=== PATIENT | female | born 1950 | race Caucasian/White ===

== ENCOUNTER → 2016-12-28 | Outpatient (CLI) | payer BC ==
[~2016-12-28] MED LIST: CITA10SO5 PO; ELDERBERRY PO; FISH1CAP29 PO
== END ==
LOC: LAB 17:04
PROVIDERS: ATTEND Surgery
DX: R00.8 Other abnormalities of heart beat (principal)
CPT/HCPCS: 93005

== ENCOUNTER 2017-04-27 05:35 | Inpatient (IN) ==
[2017-04-27] MEDS ORDERED: SALINE FLUSH 10ml SYRINGE IVF PRN (06:19)
--- NOTE | 2017-04-27 06:20 | Emergency Department Report ---
Abdominal Pain HPI - General Chief Complaint: Abdominal Pain Stated Complaint: Side pain,nausea,chills Time Seen by Provider: 04/27/17 06:19 Source: patient Mode of arrival: ambulatory Limitations: no limitations - History of Present Illness HPI narrative: 66-year-old female presents to the emergency department with a chief complaint of nausea and left sided abdominal discomfort. Patient noted onset of symptoms on Tuesday. Symptoms have been persistent intermittently in nature since onset. She denies any chest pain or shortness of breath. Patient does also note belching with nausea. She states that the pain has resolved but the nausea remains. He describes the pain as dull. Pain is mild. No radiation. She did not note any exacerbating or remitting symptoms. She denies any trauma , travel, poorly prepared food or recent antibiotic use. She has no other complaints or associated symptoms. She was eating supper when the symptoms began. Symptoms have been persisted in nature since onset. - Related Data Home Medications Medication Instructions Recorded Confirmed ELDERBERRY 1 tsp PO DAILY #0 08/16/11 04/27/17 Aspirin [Aspirin EC] 81 mg PO DAILY 01/24/17 04/27/17 Metoprolol Tartrate [Lopressor] 25 mg PO BIDWM 01/24/17 04/27/17 Allergies Allergy/AdvReac Type Severity Reaction Status Date / Time No Known Drug Allergies Allergy Unknown Verified 04/27/17 05:48 Review of Systems Constitutional: Denies: fever, weakness Eyes: Denies: eye pain, vision change ENT: Denies: ear pain, throat pain Cardiovascular: Denies: chest pain, palpitations Respiratory: Denies: cough, dyspnea Gastrointestinal: Reports: abdominal pain (resolved. ), nausea. Denies: vomiting, diarrhea Genitourinary: Denies: urgency, dysuria Musculoskeletal: Denies: back pain, arthralgia Integumentary: Denies: erythema, rash Neurological: Denies: headache, numbness Psychiatric: Denies: anxiety, depression Endocrine: Denies: fatigue, heat or cold intolerance Hematological/Lymphatic: Denies: easy bleeding, easy bruising Allergic/Immunologic: Denies: facial swelling, urticaria PFSH Patient Stated Medical History Cardiac Arrhythmia Yes: INTERMITTENT A FIB Hypertension Yes Other Cardiology Yes: Hx of Intermittent Atrial Fib Bronchitis Yes: MANY YEARS AGO Sleep Apnea Yes Shingles Yes: JANUARY 2016 Post Menopausal Yes Surgical History: Colonoscopy Family History: Reviewed and Noncontributory. - Social History Smoking status: Never smoker Substance use type: does not use Alcohol intake frequency: does not drink Physical Exam - Limitations Limitations: no limitations - General General appearance: alert, in no apparent distress - Normal Exams: Head:: Normocephalic without trauma Eyes:: Pupils are PERRLA w/ EOMI, No scleral icterus, irritation, or foreign bodies noted ENMT:: No facial trauma, nasal exudates, pharyngeal erythema, or exudates are noted Dental: No fractured, loose, or missing teeth noted Neck:: Full range of motion, without adenopathy, JVD, bruits or thyromegaly Chest/Respirations:: Clear all pierre, with good airflow, and symmetry bilaterally Cardiovascular:: Regular rate and rhythm, without murmur or gallop, Pulses 2+ all extremities, capillary refill, <2 seconds all extremities Abdomen:: Bowel sounds positive, soft, non-tender, non-distended, no hepatosplenomegaly, masses or bruits noted Lymphatic:: No lymphadenopathy, or lymphedema noted Musculoskeletal:: No tenderness, or deformity noted, good range of motion, all extremities Integumentary:: No rashes, hives, or bruising noted, hair and nails, without abnormality Neurological:: Patient is alert, and oriented, cranial nerves, motor/sensory/ cerebellar, exams w/o gross deficits, to observation Psychiatric:: Patient exhibits, appropriate attention, emotion and affect Course Vital Signs Temperature 98.3 F 04/27/17 05:38 Pulse Rate 102 H 04/27/17 05:38 Respiratory Rate 12 04/27/17 05:38 Blood Pressure 146/96 H 04/27/17 05:38 Pulse Oximetry 98 04/27/17 05:38 Temperature 98.3 F 04/27/17 05:38 Pulse Rate 102 H 04/27/17 05:38 Respiratory Rate 12 04/27/17 05:38 Blood Pressure 146/96 H 04/27/17 05:38 Pulse Oximetry 98 04/27/17 05:38 Abdominal Pain - MDM Narrative Medical decision making narrative: Labs / imaging were discussed in detail with the patient and questions are answered. Due to the patient's continued complaints of nausea and belching EKG/ troponin is ordered. EKG shows potential ischemic changes in V3/V4. Troponin returns positive. Repeat EKG is ordered. Dr. Umanzor is contacted as the patient belongs to Dr. Umanzor and his cardiology service. Dr. Umanzor will take the patient to the [facility] for further evaluation and treatment. Patient was given 324 mg of aspirin by mouth times one. Patient declines offered analgesic pain medication in the emergency department. Heparin drip will be initiated by Dr. Umanzor's team. Patient will be taken to CCU from the [facility]. Patient is in agreement with the current plan of management. No further orders from accepting physician who is in agreement with the current plan of management. She was admitted to the hospital in improved condition. Dr. Umanzor accepted the patient to his service. Dr. Umanzor came to the emergency department and evaluated the patient in the ER. - Differential Diagnosis Differential diagnosis: Likely: abdominal pain, calculus of kidney, pancreatitis , small bowel obstruction - Lab Data Result diagrams: 04/27/17 06:32 04/27/17 06:32 - Radiology Data CXR - No acute processes. - EKG Data EKG #1 EKG results narrative: EKG #1 - atrial fibrillation. 97 bpm. No STEMI. Potential ischemic changes in V3/4. EKG Reviewed by Cardiology at bedside. EKG #2 - atrial flutter. 93 bpm. No STEMI. Ischemic changes noted in V3/V4. EKG reviewed by Cardiology at bedside. Critical Care Time Critical Care Time: Yes Total Critical Care Time: 60 Attestation: 60 minutes of critical care time was assessed to the patient for the elevated troponin level. Patient required repeated assessment at the bedside, complex medical decision-making, and had potential for decompensation. Critical care time was spent treating the patient, documenting the medical record, and making telephone calls on the patient's behalf. Disposition Clinical Impression: elevated troponin Disposition: 02 To [facility] Condition: Stable Prescriptions: No Action ELDERBERRY 1 tsp PO DAILY #0 Aspirin [Aspirin EC] 81 mg PO DAILY Metoprolol Tartrate [Lopressor] 25 mg PO BIDWM Referrals: Geo Arias MD [Family Provider] - Time of Disposition: 07:45 (Admit. Dr. Umanzor. ) - Seen By: physician
--- OUTSIDE RECORDS SUMMARY | 2017-04-27 06:22 | External Medical Summary | Continuity of Care Document ---
:1950 Author Organization Via [facility] Allergies Medications Problems Procedures Results Encounters ACCT No. Visit Discharge Status Pt. Type Provider Facility Loc./Unit Complaint Date/Time [id number] 08/28/2013 08/28/2013 CLS Outpatient 08:39:00 23:59:59
--- OUTSIDE RECORDS SUMMARY | 2017-04-27 06:22 | External Medical Summary | Referral Summary ---
:1950 Author Organization [facility] [address] [place] [address] Care Team Providers Name Role Phone Geo Arias V Primary Care Physician Encounter [facility] Date(s): 02/24/16 - 02/24/16 [facility] [address] [place] [phone] Discharge Diagnosis: Encounter for medication monitoring Discharge Diagnosis: Irregular heart rhythm Discharge Disposition: 01-Home or Self Care Attending Physician: Geo Arias MD Admitting Physician: Geo Arias MD Vital Signs Most recent to oldest [Reference Range]: 1 Peripheral Pulse Rate [60-100 bpm] 70 bpm (02/24/16 4:16 PM) Respiratory Rate [14-20 br/min] 18 br/min (02/24/16 4:16 PM) Blood Pressure [90-140/60-90 mmHg] 120/72 mmHg (02/24/16 4:16 PM) SpO2 99 % (02/24/16 4:16 PM) Problem List Condition Effective Dates Status Health Status Informant Allergies(Confirmed)1 Active Chicken pox(Confirmed) Active Depression(Confirmed) Active Irregular heart rhythm(Confirmed) Active 1Bee stings. Allergies, Adverse Reactions, Alerts Substance Reaction Severity Status Bee Stings Active Medications Aspirin Low Dose 81 mg, Oral, Daily, 0 Refill(s) Start Date: 02/21/14 Status: OrderedMetoprolol Tartrate 25 mg oral tablet 25 mg 1 tabs, Oral, BID, # 180 tabs, 3 Refill(s), Pharmacy: [id number], To be picked up when current supply expires., 1 tabs Oral BID Start Date: 02/24/16 Status: OrderedMisc Medication ELDERBERRY CONCENTRATE 1 TSP, Oral, Daily, 0 Refill(s) Start Date: 02/21/14 Status: Ordered Results No data available for this section Immunizations Vaccine Date Refusal Reason tetanus/diphth/pertuss (Tdap) adult/adol 02/18/15 Procedures Procedure Date Related Diagnosis Body Site Colonoscopy1, 2 2011 1Due [id number] C-scope done 08/17/11 - Dr. Salgado. Due 2017 Social History Social History Type Response Smoking Status Never smoker Assessment and Plan Extracted from: Title: CRMMP Author: Geo Arias MD Date: 02/24/16 Impression and Plan Diagnosis Irregular heart rhythm ([id number] I49.9, Discharge, Medical). Encounter for medication monitoring (FHE96-GU Z51.81, Discharge, Medical). Orders Orders (Selected) Prescriptions Prescribed Metoprolol Tartrate 25 mg oral tablet: 25 mg=1 tabs, Oral, BID, 180 tabs, 3 Refill(s).
--- OUTSIDE RECORDS SUMMARY | 2017-04-27 06:22 | External Medical Summary | Referral Summary ---
:1950 Author Care Team Providers Name Role Phone eGo Arias V Primary Care Physician Encounter [facility] [id number] Date(s): 11/21/14 - 11/21/14 [facility], [address] [place] [id number] Discharge Diagnosis: Paroxysmal a-fib Discharge Diagnosis: Encounter for medication review Discharge Disposition: Home or Self Care Attending Physician: Geo Arias MD Admitting Physician: Geo Arias MD Vital Signs Most recent to oldest [Reference Range]: 1 Peripheral Pulse Rate [60-100 bpm] 59 bpm *LOW* (11/21/14 3:31 PM) Blood Pressure [90-140/60-90 mmHg] 138/60 mmHg (11/21/14 3:31 PM) Problem List Condition Effective Dates Status Health Status Informant Allergies(Confirmed)1 Active Chicken pox(Confirmed) Active Depression(Confirmed) Active Irregular heart rhythm(Confirmed) Active 1Bee stings. Allergies, Adverse Reactions, Alerts Substance Reaction Severity Status Bee Stings Active Medications Aspirin Low Dose 81 mg, Oral, Daily, 0 Refill(s) Start Date: 02/21/14 Status: OrderedMetoprolol Tartrate 25 mg oral tablet 1 tabs, Oral, BID, # 180 tabs, 1 Refill(s), Pharmacy: [id number], 1 tabs Oral BID Start Date: 11/21/14 Status: OrderedMisc Medication ELDERBERRY CONCENTRATE 1 TSP, Oral, Daily, 0 Refill(s) Start Date: 02/21/14 Status: Ordered Results No data available for this section Immunizations No data available for this section Procedures Procedure Date Related Diagnosis Body Site Colonoscopy1 2004 1Due 2016 Social History Social History Type Response Smoking Status Never smoker Assessment and Plan Extracted from: Title: Office Visit Note Author: Geo Arias MD Date: 11/21/14 Assessment/Plan Paroxysmal a-fib History of atrial fibrillation well controlled on metoprolol. Continue current medications. Encourage more regular exercise. Follow-up in 6 months or sooner if needed. She'll be due for comprehensive exam after February 21. Orders: metoprolol, 1 tabs, Oral, BID, # 180 tabs, 1 Refill(s), Pharmacy: [id number], 1 tabs Oral BID
--- OUTSIDE RECORDS SUMMARY | 2017-04-27 06:22 | External Medical Summary | Referral Summary ---
:1950 Author Organization [facility] [address] [place] [address] Care Team Providers Name Role Phone Geo Arias V Primary Care Physician Encounter [facility] Date(s): 03/03/16 - 03/03/16 [facility] [address] [place] [phone] [place] Discharge Disposition: 01-Home or Self Care Attending Physician: Trent Panchal APRN Admitting Physician: Trent Panchal APRN Vital Signs Most recent to oldest [Reference Range]: 1 Peripheral Pulse Rate [60-100 bpm] 70 bpm (03/03/16 3:56 PM) Respiratory Rate [14-20 br/min] 18 br/min (03/03/16 3:56 PM) Blood Pressure [90-140/60-90 mmHg] 120/72 mmHg (03/03/16 3:56 PM) SpO2 98 % (03/03/16 3:56 PM) Problem List Condition Effective Dates Status [...] BID, # 180 tabs, 3 Refill(s), Pharmacy: [id number], To be picked up when current supply expires., 1 tabs Oral BID Start Date: 02/24/16 Status: OrderedMisc Medication ELDERBERRY CONCENTRATE 1 TSP, Oral, Daily, 0 Refill(s) Start Date: 02/21/14 Status: Ordered Results No data available for this section Immunizations Vaccine Date Refusal Reason tetanus/diphth/pertuss (Tdap) adult/adol 02/18/15 Procedures Procedure Date Related Diagnosis Body Site Colonoscopy1, 2 2011 1Due [id number] C-scope done 08/17/11 - Dr. Salgado. Due 2017 Social History Social History Type Response Smoking Status Never smoker Assessment and Plan No data available for this section
--- OUTSIDE RECORDS SUMMARY | 2017-04-27 06:22 | External Medical Summary | Referral Summary ---
:1950 Author Organization [facility] [address] [place] [address] Care Team Providers Name Role Phone Geo Arias V Primary Care Physician Encounter [facility] Date(s): 02/18/15 - 02/18/15 [facility] [address] [place] [phone]- Discharge Diagnosis: Need for diphtheria, tetanus, acellular pertussis, haemophilus influenzae, and hepatitis B virus vaccine Discharge Diagnosis: Paroxysmal a-fib Discharge Diagnosis: Well woman exam Discharge Disposition: 01-Home or Self Care Attending Physician: Geo Arias MD Admitting Physician: Geo Arias MD Vital Signs Most recent to oldest [Reference Range]: 1 Temperature Tympanic [36.6-38.1 degC] 36.9 degC (02/18/15 3:46 PM) Blood Pressure [90-140/60-90 mmHg] 117/65 mmHg (02/18/15 3:46 PM) Problem List Condition Effective Dates Status [...] BID, # 180 tabs, 1 Refill(s), Pharmacy: [id number], 1 tabs Oral BID Start Date: 03/14/15 Status: OrderedMisc Medication ELDERBERRY CONCENTRATE 1 TSP, Oral, Daily, 0 Refill(s) Start Date: 02/21/14 Status: Ordered Results No data available for this section Immunizations Vaccine Date Refusal Reason tetanus/diphth/pertuss (Tdap) adult/adol 02/18/15 Procedures Procedure Date Related Diagnosis Body Site Colonoscopy1, 2 2011 1Due [id number] C-scope done 08/17/11 - Dr. Salgado. Due 2017 Social History Social History Type Response Smoking Status Never smoker Assessment and Plan Extracted from: Title: CRMMP Author: Geo Arias MD Date: 02/18/15 Assessment/Plan Need for diphtheria, tetanus, acellular pertussis, haemophilus influenzae, and hepatitis B virus vaccine Paroxysmal a-fib Well woman exam Update Tdap today. Continue current medications. Follow-up one year/ sooner if needed.
[2017-04-27] MEDS ORDERED: NS 1,000 ML IV ONE (06:28)
[2017-04-27] MEDS ORDERED: ONDANSETRON 4 MG/2 ML INJECTION IVP ONE (07:04)
--- NOTE | 2017-04-27 08:05 | XRay Report ---
Indication: Left-sided flank pain, shortness of air PROCEDURE: XR chest 1V: Encounter: Initial Comparison: None FINDINGS: The lungs are clear. There is no abnormal airspace opacity, pleural effusion or pneumothorax identified. The heart size, pulmonary vasculature and mediastinum are within normal limits. No significant skeletal abnormality is seen. IMPRESSION: No acute cardiopulmonary abnormality. .
[2017-04-27] MEDS ORDERED: ASPIRIN 81 MG CHEWABLE TABLET PO ONE (08:12)
[2017-04-27] MEDS ORDERED: MIDAZOLAM 2mg/2ml INJECTION ONE (08:31)
[2017-04-27] MEDS ORDERED: FentaNYL 100 MCG/2 ML INJECTION ONE (08:31)
[2017-04-27] MEDS ORDERED: Verapamil 5 MG/2 ML VIAL ONE (08:31)
[2017-04-27] MEDS ORDERED: NITROGLYCERIN 50MG INJECTION IV ONE (08:32)
[2017-04-27] MEDS ORDERED: HEPARIN 1,000unit/ml INJECTION 10ml ONE (08:32)
[2017-04-27] MEDS ORDERED: SALINE FLUSH 10ml SYRINGE ONE (08:32)
[2017-04-27] MEDS ORDERED: NS 1,000 ML ONE (08:33)
[2017-04-27] MEDS ORDERED: IOHEXOL 350mg/ml 200ml BOTTLE ONE (08:48)
[2017-04-27] MEDS ORDERED: CLOPIDOGREL 75 MG TABLET ONE (08:50)
[2017-04-27] MEDS ORDERED: HEPARIN 1,000 UNITS/500 ML PREMIX (*CVL ONLY*) IV ONE (09:01)
[2017-04-27] MEDS ORDERED: LIDOCAINE 1% (10mg/ml) 30ml SDV INJ ONE (09:01)
[2017-04-27] MEDS ORDERED: NITROGLYCERIN 0.4 MG SUBLINGUAL TABLET SL PRN (10:05)
[2017-04-27] MEDS ORDERED: ACETAMINOPHEN 325 MG TABLET PO PRN (10:05)
[2017-04-27] MEDS ORDERED: PROMETHAZINE 25 MG INJECTION IVP PRN (10:05)
[2017-04-27] MEDS ORDERED: RIVAROXABAN 20 MG TABLET PO ONE (10:05)
[2017-04-27] MEDS ORDERED: Bisacodyl EC TAB 5 MG TABLET PO PRN (10:05)
[2017-04-27] MEDS ORDERED: MAG-AL + SIM ORAL LIQUID 30ml PO PRN (10:05)
[2017-04-27] MEDS ORDERED: BISACODYL 10 MG SUPPOSITORY RECTALLY PRN (10:05)
[2017-04-27] MEDS ORDERED: METOCLOPRAMIDE 10mg/2ml INJECTION IVP PRN (10:05)
[2017-04-27] MEDS ORDERED: HYDROCODONE/APAP 5mg/325mg TABLET PO PRN (10:05)
[2017-04-27] MEDS ORDERED: LORazepam 0.5 MG TABLET PO PRN (10:05)
[2017-04-27] MEDS ORDERED: MORPHINE SULFATE 4 MG SYRINGE IVP PRN ×2 (10:05)
[2017-04-27] MEDS ORDERED: ATROPINE 1 MG/ML INJECTION IVP PRN (10:05)
[2017-04-27] MEDS ORDERED: LISINOPRIL 2.5 MG TABLET PO ONE (10:05)
[2017-04-27 10:06] VITALS: BMI 21.9
--- NOTE | 2017-04-27 10:35 | Cardiac Catheterization Report ---
DATE OF PROCEDURE April 27, 2017 The patient is a 66-year-old lady who presented to emergency room with non-ST- elevation myocardial infarction and was referred for further evaluation by cardiac catheterization and possible intervention. Informed consent was obtained after explaining the procedure and the potential risks to the patient who agreed to proceed with the procedure. PROCEDURE 1. Left heart catheterization. 2. Coronary angiography. 3. Left ventriculography. 4. Primary stent of LAD using a 2.25 x 12 drug-eluting Resolute Derrick stent. TECHNIQUE She was prepped and draped in the usual sterile techniques. Conscious sedation was performed using Versed and fentanyl. 1% lidocaine was used for local anesthesia. Using modified Seldinger technique, arterial access was obtained into the right radial artery with placement of a 6-Burkinan arterial sheath. 3000 units of heparin, 300 mcg of nitroglycerin, and 2.5 mg of verapamil were given through the arterial sheath. The patient received additional 2000 units of heparin IV prior to intervention. She also received 600 mg of oral Plavix. LEFT VENTRICULOGRAPHY Left ventriculography in single-plane HOLLIDAY shallow projection showed normal LV systolic function with ejection fraction of 65% with no mitral regurgitation or gradient across the aortic valve. LVEDP was about 6. CORONARY ANGIOGRAPHY Left main was free of significant lesions. Left anterior descending artery was a medium caliber vessel which was tortuous and at the junction of the mid and distal third of the vessel there was an area of thrombus which appeared to be the culprit lesion. Left circumflex artery had minor irregularities with no significant lesions. Right coronary artery was dominant with no significant lesions. After reviewing the images we decided to proceed with intervention on LAD. Our sheath was exchanged for a 6-Burkinan Aktivito left guide. A Runthrough wire was used to cross the lesion into distal LAD. A 2.25 x 12 drug-eluting Resolute [place] stent was delivered to the lesion site where it was deployed by inflating the balloon to 14 atmospheres. Next, angiogram showed excellent results with no residual stenosis. The patient tolerated the procedure well with no complications. IMPRESSION 1. Coronary artery disease as described above. 2. Normal LV systolic function with ejection fraction of 65%. 3. Successful primary stent of LAD using a 2.25 x 12 drug-eluting Resolute Derrick stent. PLAN Will keep her on dual antiplatelet therapy at least for one year and continue risk modification. I believe this event was an embolic event resulting from her chronic atrial fibrillation. Will start her on anticoagulation as well to hopefully prevent further embolic events in future. JOSE A
--- NOTE | 2017-04-27 10:51 | Cardiology History & Physical ---
History of Present Illness Chief complaint: abdominal pain HPI: Lolita is a 66 year old female who is known to with a history of persistent atrial fibrillation. She was last seen in our office on 02/24/17 at which time she refused anticoagulation therapy to prevent stroke. She saw Dr. Arias on 03/01/17 and according to his documentation he had a long discussion with her regarding atrial fibrillation pathophysiology, rhythm control versus rate control/anticoagulation, at the end of which she decided to think about it further and would let him know if she decided to proceed. Today she presented to the ED with nausea and left sided abdominal discomfort. She reported onset of symptoms on Tuesday, and has been persistent intermittently in nature since onset. She denies any chest pain or shortness of breath. She does also note belching with nausea. She describes the pain as dull, and mild, with no radiation. She denies any trauma, travel, poorly prepared food or recent antibiotic use. She has no other complaints or associated symptoms. In the ED she was found to have a Troponin elevated to 3.270 with repeat of 3.380. EKG showed Atrial fibrillation with T wave abnormality indicating anterior, inferior ischemia. She was taken directly to the [facility] for a left heart catheterization with possible percutaneous intervention. Review of Systems - Constitutional Constitutional: Present: chills. Absent: fever(s), weight loss - EENMT Eyes: Absent: change in vision Balance: Absent: vertigo Mouth/Throat: Absent: sore throat - Cardiovascular Cardiovascular: Absent: chest pain, palpitations, syncope, dyspnea on exertion, orthopnea Rhythm: Present: abnormal rhythm Vascular: Absent: pedal edema - Respiratory Respiratory: Absent: cough, dyspnea, dyspnea on exertion - Gastrointestinal Gastrointestinal: Present: as per HPI, abdominal pain, nausea. Absent: diarrhea , vomiting - Genitourinary Genitourinary: Absent: dysuria - Integumentary/Breasts Integumentary: Absent: rash - Neurological Neurological: Absent: dizziness - Endocrine Endocrine: Absent: palpitations PFSH Patient Stated Medical History Cardiac Arrhythmia Yes: INTERMITTENT A FIB Other Cardiology Yes: Hx of Intermittent Atrial Fib Bronchitis Yes: MANY YEARS AGO Shingles Yes: JANUARY 2016 Depression Yes Post Menopausal Yes Surgical History: Colonoscopy Family History: Father - [place] Maternal grandmother - CVA - Social History Smoking status: Never smoker Substance use type: does not use Alcohol intake frequency: holidays/special occasions only Housing: house Household members: spouse Current residence: Apartment/Private Home Medications Allergies Allergy/AdvReac Type Severity Reaction Status Date / Time No Known Drug Allergies Allergy Unknown Verified 04/27/17 05:48 Exam Vital signs: Temperature 97.9 F 04/27/17 10:12 Pulse Rate 80 04/27/17 10:38 Respiratory Rate 15 04/27/17 08:26 Blood Pressure 141/69 H 04/27/17 08:26 Pulse Oximetry 99 04/27/17 08:26 - Constitutional no acute distress, well nourished, cooperative - Routine HEENT Exam Head: Present: normocephalic ENT: Present: mucous membranes moist - Routine Neck Exam Absent: JVD, carotid bruit - Routine Chest/Breast/Axilla Exam Chest wall: Absent: tenderness - Routine Respiratory Exam Absent: CTA bilaterally, rales, wheezes - Routine Cardiovascular Exam Present: no murmur, irregular rhythm. Absent: JVD - Routine Abdominal Exam Present: soft, normoactive bowel sounds - Routine Extremities Exam Present: no edema - Routine Skin Exam Present: intact, dry, warm - Routine Neurological Exam Present: alert, oriented X3 - Routine Psychiatric Exam Present: normal affect, normal thought process Results 04/29/17 03:45 04/29/17 03:45 Intake and Output 04/26/17 04/27/17 04/27/17 22:59 06:59 14:59 Output Total 1600 / 1600 Balance -1600 / -600 Output: Urine 1600 / 1600 Other: Urine Appearance Clear Urine Color Pale Yellow Weight 136 lb 0.403 oz Patient Weight 04/28/17 06:59 Weight 136 lb 0.403 oz Laboratory Results - last 24 hr 04/27/17 04/27/17 04/27/17 06:32 06:32 06:32 WBC 11.2 H RBC 4.63 Hgb 14.1 Hct 42.0 MCV 90.7 MCH 30.5 MCHC 33.6 RDW Std Deviation 38.8 Plt Count 219 MPV 10.5 Immature Gran % (Auto) 0.4 Neut % (Auto) 84.9 H Lymph % (Auto) 8.3 L [place] % (Auto) 6.2 Eos % (Auto) 0.1 Baso % (Auto) 0.1 Neut # (Auto) 9.5 H Lymph # (Auto) 0.9 L [place] # (Auto) 0.7 Eos # (Auto) 0.0 Baso # (Auto) 0.0 Abs Immat Gran (auto) 0.05 H Turbidity < 20 Sodium 135 Potassium 4.1 Chloride 100 Carbon Dioxide 25 Anion Gap 10 BUN 17.0 Creatinine 1.0 GFR Calculation 56 BUN/Creatinine Ratio 17 Glucose 122 H Calculated Osmolality 263 Calcium 9.8 Total Bilirubin 0.90 Icterus Index < 2 AST 175 H ALT 131 H Alkaline Phosphatase 84 Troponin I 3.270 H Total Protein 8.3 H Albumin 4.4 Globulin 3.9 H Albumin/Globulin Ratio 1.1 Lipase 62 Specimen Hemolysis 32 H 31 H Ur Collection Type Urine Color Urine Clarity Urine pH Ur Specific [place] Urine Protein Urine Glucose (UA) Urine Ketones Urine Occult Blood Urine Nitrate Urine Bilirubin Urine Urobilinogen Ur Leukocyte Esterase Urine RBC Urine WBC Ur Squamous Epith Cells Urine Bacteria Ur Culture Indicated? 04/27/17 04/27/17 06:37 07:32 WBC RBC Hgb Hct MCV MCH MCHC RDW Std Deviation Plt Count MPV Immature Gran % (Auto) Neut % (Auto) Lymph % (Auto) [place] % (Auto) Eos % (Auto) Baso % (Auto) Neut # (Auto) Lymph # (Auto) [place] # (Auto) Eos # (Auto) Baso # (Auto) Abs Immat Gran (auto) Turbidity Sodium Potassium Chloride Carbon Dioxide Anion Gap BUN Creatinine GFR Calculation BUN/Creatinine Ratio Glucose Calculated Osmolality Calcium Total Bilirubin Icterus Index AST ALT Alkaline Phosphatase Troponin I 3.380 H Total Protein Albumin Globulin Albumin/Globulin Ratio Lipase Specimen Hemolysis < 15 Ur Collection Type Urine, clean catch Urine Color Yellow Urine Clarity Clear Urine pH 7.0 Ur Specific [place] 1.010 L Urine Protein Trace A Urine Glucose (UA) Negative Urine Ketones 1+ A Urine Occult Blood 1+ A Urine Nitrate Negative Urine Bilirubin Negative Urine Urobilinogen 0.2 Ur Leukocyte Esterase Negative Urine RBC 0-1 Urine WBC None seen Ur Squamous Epith Cells None seen Urine Bacteria None seen Ur Culture Indicated? Cult not indicated - Imaging and Cardiology Echo: other (last echo: 02/10/17 EF 55%, mild TR, PAP 30mmhg) Cardiac cath: report reviewed Imaging & Cardiology Narrative: Date of Exam: 04/27/17 Type of Exam(s): CA heart cath LT DATE OF PROCEDURE April 27, 2017 The patient is a 66-year-old lady who presented to emergency room with non-ST- elevation myocardial infarction and was referred for further evaluation by cardiac catheterization and possible intervention. Informed consent was obtained after explaining the procedure and the potential risks to the patient who agreed to proceed with the procedure. PROCEDURE 1. Left heart catheterization. 2. Coronary angiography. 3. Left ventriculography. 4. Primary stent of LAD using a 2.25 x 12 drug-eluting Resolute [place] stent. TECHNIQUE She was prepped and draped in the usual sterile techniques. Conscious sedation was performed using Versed and fentanyl. 1% lidocaine was used for local anesthesia. Using modified Seldinger technique, arterial access was obtained into the right radial artery with placement of a 6-Greek arterial sheath. 3000 units of heparin, 300 mcg of nitroglycerin, and 2.5 mg of verapamil were given through the arterial sheath. The patient received additional 2000 units of heparin IV prior to intervention. She also received 600 mg of oral Plavix. LEFT VENTRICULOGRAPHY Left ventriculography in single-plane HOLLIDAY shallow projection showed normal LV systolic function with ejection fraction of 65% with no mitral regurgitation or gradient across the aortic valve. LVEDP was about 6. CORONARY ANGIOGRAPHY Left main was free of significant lesions. Left anterior descending artery was a medium caliber vessel which was tortuous and at the junction of the mid and distal third of the vessel there was an area of thrombus which appeared to be the culprit lesion. Left circumflex artery had minor irregularities with no significant lesions. Right coronary artery was dominant with no significant lesions. After reviewing the images we decided to proceed with intervention on LAD. Our sheath was exchanged for a 6-Greek [place] left guide. A Runthrough wire was used to cross the lesion into distal LAD. A 2.25 x 12 drug-eluting Resolute [place] stent was delivered to the lesion site where it was deployed by inflating the balloon to 14 atmospheres. Next, angiogram showed excellent results with no residual stenosis. The patient tolerated the procedure well with no complications. IMPRESSION 1. Coronary artery disease as described above. 2. Normal LV systolic function with ejection fraction of 65%. 3. Successful primary stent of LAD using a 2.25 x 12 drug-eluting Resolute [place] stent. PLAN Will keep her on dual antiplatelet therapy at least for one year and continue risk modification. I believe this event was an embolic event resulting from her chronic atrial fibrillation. Will start her on anticoagulation as well to hopefully prevent further embolic events in future. 04/27/17 11:10 Date of Exam: 04/27/17 Ordering Provider: Gagan López DO Type of Exam(s): XR chest 1V Reason for Exam(s): pain Indication: Left-sided flank pain, shortness of air PROCEDURE: XR chest 1V: Encounter: Initial Comparison: None FINDINGS: The lungs are clear. There is no abnormal airspace opacity, pleural effusion or pneumothorax identified. The heart size, pulmonary vasculature and mediastinum are within normal limits. No significant skeletal abnormality is seen. IMPRESSION: No acute cardiopulmonary abnormality. EKG interpretations - EKG EKG shows: atrial fibrillation - Blocks, axis, hypertrophy, ST abn Repolarization changes or abnormalities: ST or T wave suggestive of ischemia Hospital Course This is a general summary of the patient's hospital course. For more details refer to the complete medical record. Hospital course: NSTEMI: due to emboli due to patient's history of persistent atrial fibrillation without anticoagulation and minimal CAD. Stent placed in distal LAD. Will keep on dual antiplatelet therapy with Aspirin and Plavix for 1 year. Continue BB prescribed for rate control with addition of ACEI, and Atorvastatin. AFib: Start Xarelto 20mg daily for stroke prevention. Continue BB for rate control. Discuss cardioversion after 30 days anticoagulation or referral for ablation. Time spent with patient: 25 - 35 minutes DVT Prophylaxis: Xarelto Assessment and Plan - Attestation Attestation Narrative: 05/03/17 13:57 Recommendation After examining the patient I agree with the above assessment. I am involved in the formulation of the patient's plan of care. - Assessment and Plan (1) NSTEMI (non-ST elevated myocardial infarction) Status: Acute NSTEMI due to emboli due to patient's history of persistent atrial fibrillation without anticoagulation and minimal CAD. Stent placed in distal LAD. Will keep on dual antiplatelet therapy with Aspirin and Plavix for 1 year. Continue BB prescribed for rate control with addition of ACEI, and Atorvastatin. (2) Persistent atrial fibrillation Status: Chronic Start Xarelto 20mg daily for stroke prevention. Continue BB for rate control. Discuss cardioversion after 30 days anticoagulation or referral for ablation.
[2017-04-27] MEDS: ASPIRIN *EC* 81 MG TABLET PO SCH (12:32)
[2017-04-27] MEDS: ONDANSETRON 4 MG/2 ML INJECTION IVP PRN ×2 (16:55→23:58)
[2017-04-27] MEDS ORDERED: CARVEDILOL 3.125 MG TABLET PO SCH (17:30)
[2017-04-27] MEDS: ATORVASTATIN 20 MG TABLET PO SCH (21:56)
[2017-04-28] MEDS: CLOPIDOGREL 75 MG TABLET PO SCH (08:28)
[2017-04-28] MEDS: ASPIRIN *EC* 81 MG TABLET PO SCH (08:28)
[2017-04-28] MEDS ORDERED: ASPIRIN *EC* 81 MG TABLET PO SCH (09:00)
--- NOTE | 2017-04-28 12:47 | Consult Note ---
<Lesley Contreras - Last Filed: 04/28/17 13:45> Consult Information - Data of Consult Consult date: 04/28/17 Requesting Physician: Akin Umanzor MD Primary Care Provider: Geo Arias MD Family Provider: Geo Arias MD - Consult Narrative Reason for consult: LLQ pain History of present illness: Patient is a 66-year-old old female who sees Dr. Geo Arias for her primary care. She states that on the evening of 04/26/17 she developed nausea and left lower quadrant abdominal pain. She reported to the emergency room on the morning of 04/27/17 due to the persistent nausea and abdominal pain. She was also having some belching and some vomiting. In the ER she was found to have an elevated troponin. Dr. Umanzor took her to the [facility] and she was found to have a thrombus in her LAD. She reports that since the heart catheter, she's no longer had the left lower quadrant abdominal pain. She has had some nausea, but reports it is continuing to improve. She states she ate more for lunch today than she had been eating and she is feeling well. Her last colonoscopy was in December. Per patient report it was normal. She has no history of diverticulosis/ diverticulitis. Patient has a history of intermittent atrial fibrillation and has refused anticoagulation in the past. Since her heart catheterization and stent, she has agreed to take Plavix. She was seen today in the CCU today as a consult requested by cardiology. She really has no complaints at this time, other than still having some fatigue, which she reports is improving. Also, mild nausea which is also improving. PFSH Medical History Paroxysmal Atrial fibrillation Depression H/o shingles Surgical History: Colonoscopy(December 2016), cardiac stent placement (04/27/17-Dr. 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 Review of Systems All systems PM: 10-point ROS was reviewed, no additional remarkable complaints except - Constitutional Constitutional: Present: fatigue (improving) - Gastrointestinal Gastrointestinal: Present: nausea (improving) Medications Home Medications Medication Instructions Recorded Confirmed Type ELDERBERRY 1 tsp PO DAILY #0 08/16/11 04/27/17 History Aspirin [Aspirin EC] 81 mg PO DAILY 01/24/17 04/27/17 History Metoprolol Tartrate [Lopressor] 25 mg PO BIDWM 01/24/17 04/27/17 History Allergies Allergy/AdvReac Type Severity Reaction Status Date / Time No Known Drug Allergies Allergy Unknown Verified 04/27/17 05:48 Exam Vital Signs: Temperature 98.5 F 04/28/17 08:00 Pulse Rate 63 04/28/17 11:57 Respiratory Rate 20 04/28/17 10:00 Blood Pressure 96/49 04/28/17 10:00 Pulse Oximetry 97 04/28/17 10:00 Height/Weight/BMI: Height 1.68 m Weight 60.9 kg Body Mass Index 21.9 - Constitutional Present: no acute distress, well nourished, well developed - Routine HEENT Exam Head: Present: normocephalic, atraumatic Eye: Present: EOMI ENT: Present: mucous membranes moist - Routine Neck Exam Present: supple, full ROM - Routine Respiratory Exam Present: CTA bilaterally. Absent: wheezes - Routine Cardiovascular Exam Present: irregularly irregular. Absent: murmur - Routine Abdominal Exam Present: soft, normoactive bowel sounds, non distended. Absent: tenderness - Routine Extremities Exam Present: no edema, normal capillary refill - Routine Skin Exam Present: dry, warm - Routine Neurological Exam Present: alert, oriented X3 Cranial nerves III through XII intact - Routine Psychiatric Exam Present: normal affect, normal thought process, cooperative Results - Labs CBC & Chem 7: 04/28/17 04:33 04/28/17 04:33 Labs: Laboratory Tests 04/27/17 04/27/17 04/27/17 06:32 07:32 20:49 Troponin I 3.270 H 3.380 H 3.170 H Laboratory Tests 04/28/17 04:33 Triglycerides 54 Cholesterol 148 HDL Cholesterol 51 Laboratory Tests 04/27/17 06:32 AST 175 H ALT 131 H Alkaline Phosphatase 84 Lipase 62 - Imaging and Cardiology Chest x-ray Additional comments: FINDINGS: The lungs are clear. There is no abnormal airspace opacity, pleural effusion or pneumothorax identified. The heart size, pulmonary vasculature and mediastinum are within normal limits. No significant skeletal abnormality is seen. IMPRESSION: No acute cardiopulmonary abnormality. heart cath Additional comments: DATE OF PROCEDURE April 27, 2017 The patient is a 66-year-old lady who presented to emergency room with non-ST- elevation myocardial infarction and was referred for further evaluation by cardiac catheterization and possible intervention. Informed consent was obtained after explaining the procedure and the potential risks to the patient who agreed to proceed with the procedure. PROCEDURE 1. Left heart catheterization. 2. Coronary angiography. 3. Left ventriculography. 4. Primary stent of LAD using a 2.25 x 12 drug-eluting Resolute [place] stent. TECHNIQUE She was prepped and draped in the usual sterile techniques. Conscious sedation was performed using Versed and fentanyl. 1% lidocaine was used for local anesthesia. Using modified Seldinger technique, arterial access was obtained into the right radial artery with placement of a 6-[place] arterial sheath. 3000 units of heparin, 300 mcg of nitroglycerin, and 2.5 mg of verapamil were given through the arterial sheath. The patient received additional 2000 units of heparin IV prior to intervention. She also received 600 mg of oral Plavix. LEFT VENTRICULOGRAPHY Left ventriculography in single-plane HOLLIDAY shallow projection showed normal LV systolic function with ejection fraction of 65% with no mitral regurgitation or gradient across the aortic valve. LVEDP was about 6. CORONARY ANGIOGRAPHY Left main was free of significant lesions. Left anterior descending artery was a medium caliber vessel which was tortuous and at the junction of the mid and distal third of the vessel there was an area of thrombus which appeared to be the culprit lesion. Left circumflex artery had minor irregularities with no significant lesions. Right coronary artery was dominant with no significant lesions. After reviewing the images we decided to proceed with intervention on LAD. Our sheath was exchanged for a 6-[place] left guide. A Runthrough wire was used to cross the lesion into distal LAD. A 2.25 x 12 drug-eluting Resolute [place] stent was delivered to the lesion site where it was deployed by inflating the balloon to 14 atmospheres. Next, angiogram showed excellent results with no residual stenosis. The patient tolerated the procedure well with no complications. IMPRESSION 1. Coronary artery disease as described above. 2. Normal LV systolic function with ejection fraction of 65%. 3. Successful primary stent of LAD using a 2.25 x 12 drug-eluting Resolute [place] stent. PLAN Will keep her on dual antiplatelet therapy at least for one year and continue risk modification. I believe this event was an embolic event resulting from her chronic atrial fibrillation. Will start her on anticoagulation as well to hopefully prevent further embolic events in future. Assessment and Plan (1) Persistent atrial fibrillation Current visit: Yes Status: Acute (2) Leukocytosis Current visit: Yes Status: Acute (3) Pain, abdominal, LLQ Current visit: Yes Status: Acute Assessment and Plan: Impression Left sided abdominal pain-resolved Nausea-improving Leukocytosis Elevated LFTs atrial fibrillation Status post heart catheterization with removal of thrombus from LAD and stent placement NSTEMI Plan Patient reports her pain has been resolved since heart catheterization, however , given her elevated LFT's, leukocytosis and continued nausea, will check CT abdomen/pelvis with IV contrast. Differential would include referred cardiac pain, diverticulitis and nephrolithiasis, however, she had a recent colonoscopy showing no diverticuli, and she has no history of kidney stones and an essentially negative UA on admission. Will start IVF's given the 116 ml of contrast she received yesterday with heart cath and the contrast she'll receive with abd/pelvis CT. Recommend repeat CBC and LFTs in a.m. If she develops any pain or she has increase in nausea or has recurrence of vomiting will reevaluate. Appreciate consult from cardiology. Will follow the patient along with you until discharge. Hospital Course Summary Disclaimer: The visit summary below is not to be considered part of the above Progress Note. Hospital Course: Left sided abdominal pain-resolved Nausea-improving Leukocytosis Elevated LFTs Status post heart catheterization with removal of thrombus from LAD and stent placement NSTEMI 04/28/17 - hospitalist consult. Patient reports her pain has been resolved since heart catheterization, however , given her elevated LFT's, leukocytosis and continued nausea, will check CT abdomen/pelvis with IV contrast. Differential would include referred cardiac pain, diverticulitis, or nephrolithiasis, however, she had a recent colonoscopy showing no diverticuli, and she has no history of kidney stones and an essentially negative UA on admission. Will start IVF's given the 116 ml of contrast she received yesterday with heart cath and the contrast she'll receive with abd/pelvis CT. Recommend repeat CBC and LFTs in a.m. If she develops any pain or she has increase in nausea or has recurrence of vomiting will reevaluate. Appreciate consult from cardiology. Will follow the patient along with you until discharge. <Lauren Montemayor - Last Filed: 04/28/17 15:30> Consult Information - Data of Consult Requesting Physician: Akin Umanzor MD Primary Care Provider: Geo Arias MD Family Provider: Geo Arias MD Exam Vital Signs: Temperature 97.5 F 04/28/17 12:00 Pulse Rate 97 04/28/17 14:00 Respiratory Rate 64 H 04/28/17 14:00 Blood Pressure 117/63 04/28/17 14:00 Pulse Oximetry 98 04/28/17 14:00 Height/Weight/BMI: Height 1.68 m Weight 60.9 kg Body Mass Index 21.9 Results - Labs CBC & Chem 7: 04/28/17 04:33 04/28/17 04:33 Assessment and Plan (1) Persistent atrial fibrillation Current visit: Yes Status: Acute (2) Leukocytosis Current visit: Yes Status: Acute (3) Pain, abdominal, LLQ Current visit: Yes Status: Acute Assessment and Plan: I have independently evaluated and examined this patient. 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 We discussed and formulated the assessment and plan as above with additions as below: Mrs. Gomes was resting comfortably in the intensive care unit when evaluated. She reported complete resolution of left lower quadrant discomfort with only minimal residual nausea. She denied past knowledge of abnormal liver enzymes, any medications which would elevate transaminases, or hypotension. She's had no chest pain. Respirations are nonlabored with clear breath sounds. Cardiac rhythm irregular with A. fib on the monitor. Abdomen soft, nontender; Harvey's negative, bowel sounds present No outpatient labs in the past 18 months available for comparison by the outpatient record review; left lower quadrant pain has resolved spontaneously and patient is afebrile thus acute inflammatory disease is unlikely. Given uncertainty as to presenting symptoms and due to transaminitis we'll proceed with imaging of the abdomen by CT. Will require follow-up of the liver enzymes as an outpatient. Discussed with cardiology; chest x-ray reviewed by myself-entirely normal. Hospital Course Summary Disclaimer: The visit summary below is not to be considered part of the above Progress Note.
[2017-04-28] MEDS ORDERED: IOHEXOL 300mg/ml 75ml INJECTION ONE (13:35)
[2017-04-28] MEDS ORDERED: NS 0 ML ONE (13:35)
[2017-04-28] MEDS ORDERED: SALINE FLUSH 10ml SYRINGE ONE ×2 (13:35→14:58)
[2017-04-28] MEDS ORDERED: IOHEXOL 300mg/ml 100ml INJECTION ONE (14:58)
[2017-04-28] MEDS ORDERED: NS 100 ML ONE (14:58)
[2017-04-28] MEDS: NS 1,000 ML IV SCH (15:29)
--- NOTE | 2017-04-28 16:09 | CT Scan Report ---
Indication: abn LFTs, LLQ pain PROCEDURE: CT abdomen pelvis w con: Encounter: Initial Comparison: None Technique: Axial CT images were performed through the abdomen and pelvis after the administration of intravenous contrast. Coronal and sagittal two-dimensional reformats. Automated Exposure Control and Iterative Reconstruction dose reducing techniques were utilized. Contrast: Omnipaque 300 89 mL Findings: Atelectasis in both lower lobes. Tiny low-attenuation foci scattered throughout the liver, too small to definitively characterize. No enhancing liver mass or bile duct dilatation. Some vicarious excretion of contrast material by the gallbladder. The spleen, pancreas and adrenal glands are within normal limits. The right kidney shows areas of upper and lower pole scarring without enhancing mass or hydronephrosis. The left kidney is diffusely abnormal with perinephric inflammation and areas of cortical nonenhancement peripherally involving the upper and interpolar area primarily. Left renal vein appears patent. Left renal artery also appears patent. The bladder is grossly normal. There is a large mass in the left posterior pelvis measuring 5.3 x 5 cm on axial image #65. This contains fat, soft tissue attenuation and calcification consistent with a teratoma. The calcifications appear somewhat toothlike measuring up to 1.8 x 0.8 cm in size. No evidence of a bowel obstruction. The appendix is normal. Small amount of free pelvic fluid. Bone windows show no acute findings. Impression: 1. Significantly abnormal appearance of the left kidney with cortical hypoenhancement in multiple locations and perirenal inflammatory changes. Findings could represent acute pyelonephritis or an acute renal infarct. Recommend clinical and laboratory correlation. 2. 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 Findings were discussed with the ordering physician at 1600 on April 28, 2017. .
--- NOTE | 2017-04-28 17:18 | Cardiology Progress Note ---
Subjective Principal diagnosis: NSTEMI, AFib <Kaylah Jain 04/28/17 17:20> Interval history: Lolita is seen in follow up for NSTEMI and AFib. She complains of nausea but denies chest pain or palpitations, dyspnea or dizziness. She is in SR. <Kaylah Jain 04/28/17 17:20> Exam Vital signs: Temperature 97.9 F 04/29/17 11:03 Pulse Rate 85 04/29/17 11:03 Respiratory Rate 16 04/29/17 11:03 Blood Pressure 98/67 04/29/17 11:03 Pulse Oximetry 98 04/29/17 11:03 <Akin Umanzor - 05/03/17 13:58> Temperature 97.5 F 04/28/17 12:00 Pulse Rate 99 04/28/17 16:00 Respiratory Rate 22 04/28/17 16:00 Blood Pressure 113/59 04/28/17 16:00 Pulse Oximetry 97 04/28/17 16:00 <Kaylah Jain 04/28/17 17:20> - Constitutional no acute distress, cooperative <Kaylah Jain 04/28/17 17:20> - Routine HEENT Exam Head: Present: normocephalic <Kaylah Jain 04/28/17 17:20> ENT: Present: mucous membranes moist <Kaylah Jain 04/28/17 17:20> - Routine Neck Exam Absent: JVD, carotid bruit <Kaylah Jain 04/28/17 17:20> - Routine Chest/Breast/Axilla Exam Chest wall: Absent: tenderness <Kaylah Jain 04/28/17 17:20> - Routine Respiratory Exam Present: CTA bilaterally. Absent: rales, wheezes <Kaylah Jain 04/28/17 17:20> - Routine Cardiovascular Exam Present: RRR. Absent: no murmur, JVD <Kaylah Jain 04/28/17 17:20> - Routine Abdominal Exam Present: soft, normoactive bowel sounds <Kaylah Jain 04/28/17 17:20> - Routine Extremities Exam Present: no edema <Kaylah Jain 04/28/17 17:20> - Routine Skin Exam Present: intact, dry, warm <Kaylah Jain M - 04/28/17 17:20> - Routine Neurological Exam Present: alert, oriented X3 <Kaylah Jain M - 04/28/17 17:20> - Routine Psychiatric Exam Present: normal affect, normal thought process <aKylah Jain M - 04/28/17 17: 20> - Additional findings Additional findings: Laboratory Results - last 24 hr 04/27/17 04/28/17 04/28/17 20:49 04:33 04:33 WBC 15.4 H RBC 4.21 Hgb 12.8 Hct 38.6 MCV 91.7 MCH 30.4 MCHC 33.2 RDW Std Deviation 40.3 Plt Count 179 MPV 11.1 Immature Gran % (Auto) Not performed Neut % (Auto) Not performed Lymph % (Auto) Not performed [place] % (Auto) Not performed Eos % (Auto) Not performed Baso % (Auto) Not performed Neut # (Auto) Not performed Lymph # (Auto) Not performed [place] # (Auto) Not performed Eos # (Auto) Not performed Baso # (Auto) Not performed Abs Immat Gran (auto) Not performed Neutrophils % (Manual) 86.0 H Band Neutrophils % 2.0 Lymphocytes % (Manual) 6.0 L Monocytes % (Manual) 6.0 Neutrophils # (Manual) 13.2 H Band Neutrophils # 0.3 Lymphocytes # (Manual) 0.9 L Monocytes # (Manual) 0.9 H RBC Morph Comment Normal Turbidity < 20 Sodium 136 Potassium 3.8 Chloride 103 Carbon Dioxide 26 Anion Gap 7 BUN 12.0 Creatinine 1.0 GFR Calculation 56 BUN/Creatinine Ratio 12 Glucose 121 H Calculated Osmolality 263 Calcium 9.0 D Icterus Index < 2 Troponin I 3.170 H Triglycerides Cholesterol LDL Cholesterol, Calc VLDL Cholesterol HDL Cholesterol Cholesterol/HDL Ratio Specimen Hemolysis < 15 < 15 04/28/17 04:33 WBC RBC Hgb Hct MCV MCH MCHC RDW Std Deviation Plt Count MPV Immature Gran % (Auto) Neut % (Auto) Lymph % (Auto) [place] % (Auto) Eos % (Auto) Baso % (Auto) Neut # (Auto) Lymph # (Auto) [place] # (Auto) Eos # (Auto) Baso # (Auto) Abs Immat Gran (auto) Neutrophils % (Manual) Band Neutrophils % Lymphocytes % (Manual) Monocytes % (Manual) Neutrophils # (Manual) Band Neutrophils # Lymphocytes # (Manual) Monocytes # (Manual) RBC Morph Comment Turbidity Sodium Potassium Chloride Carbon Dioxide Anion Gap BUN Creatinine GFR Calculation BUN/Creatinine Ratio Glucose Calculated Osmolality Calcium Icterus Index Troponin I Triglycerides 54 Cholesterol 148 LDL Cholesterol, Calc 86.2 VLDL Cholesterol 10.8 HDL Cholesterol 51 Cholesterol/HDL Ratio 2.9 Specimen Hemolysis Acetaminophen (Tylenol) 325 - 650 mg PO Q5H PRN PRN Reason: Pain Hydrocodone Bitart/Acetaminophen ([place] 5/325) 1 - 2 tab PO Q5H PRN PRN Reason: Pain Al Hydroxide/Mg Hydroxide (Maalox Plus) 30 ml PO Q3H PRN PRN Reason: Indigestion Amiodarone HCl (Pacerone) 400 mg PO BID [facility] Stop: 05/04/17 21:00 Amiodarone HCl (Pacerone) 200 mg PO DAILY [facility] Aspirin (Ecotrin) 81 mg PO DAILY [facility] Last Admin: 04/28/17 08:28 Dose: 81 mg Atorvastatin Calcium (Lipitor) 20 mg PO HS [facility] Last Admin: 04/27/17 21:56 Dose: 20 mg Atropine Sulfate (Atropine) 0.5 mg IVP Q5M PRN PRN Reason: Bradycardia Bisacodyl (Dulcolax) 5 - 10 mg PO DAILY PRN PRN Reason: Constipation Bisacodyl (Dulcolax) 10 mg RECTALLY DAILY PRN PRN Reason: Constipation Clopidogrel Bisulfate (Plavix) 75 mg PO DAILY [facility] Last Admin: 04/28/17 08:28 Dose: 75 mg Sodium Chloride (Normal Saline) 1,000 mls @ 75 mls/hr IV .[id number] [facility] Last Admin: 04/28/17 15:29 Dose: 75 mls/hr Lisinopril (Prinivil) 2.5 mg PO DAILY [facility] Lorazepam (Ativan) 0.5 - 1 mg PO Q4H PRN PRN Reason: Anxiety Lorazepam (Ativan Inj) 0.5 - 1 mg IVP Q4H PRN PRN Reason: Anxiety Magnesium Hydroxide (Mom) 30 ml PO DAILY PRN PRN Reason: Constipation Metoclopramide HCl (Reglan) 5 - 10 mg IVP Q6H PRN PRN Reason: Nausea &/or vomiting Metoprolol Tartrate (Lopressor) 25 mg PO BIDWM JORGE A Last Admin: 04/28/17 08:29 Dose: 25 mg Morphine Sulfate (Morphine Sulfate Inj) 2 - 4 mg IVP Q5M PRN PRN Reason: Angina Nitroglycerin (Nitrostat) 0.4 mg SL Q5M PRN PRN Reason: Angina Ondansetron HCl (Zofran) 4 mg IVP Q6H PRN PRN Reason: Nausea &/or vomiting Last Admin: 04/27/17 23:58 Dose: 4 mg Promethazine HCl (Phenergan Inj) 12.5 - 25 mg IVP Q6HR PRN PRN Reason: Nausea &/or vomiting Sodium Chloride (Iv Flush) 10 - 80 ml IVF PRN PRN PRN Reason: Flushing Last Admin: 04/27/17 06:41 Dose: 20 ml Date of Exam: 04/28/17 Ordering Provider: Lauren Montemayor MD Type of Exam(s): CT abdomen pelvis w con Reason for Exam(s): abn LFTs, LLQ pain Indication: abn LFTs, LLQ pain PROCEDURE: CT abdomen pelvis w con: Encounter: Initial Comparison: None Technique: Axial CT images were performed through the abdomen and pelvis after the administration of intravenous contrast. Coronal and sagittal two-dimensional reformats. Automated Exposure Control and Iterative Reconstruction dose reducing techniques were utilized. Contrast: Omnipaque 300 89 mL Findings: Atelectasis in both lower lobes. Tiny low-attenuation foci scattered throughout the liver, too small to definitively characterize. No enhancing liver mass or bile duct dilatation. Some vicarious excretion of contrast material by the gallbladder. The spleen, pancreas and adrenal glands are within normal limits. The right kidney shows areas of upper and lower pole scarring without enhancing mass or hydronephrosis. The left kidney is diffusely abnormal with perinephric inflammation and areas of cortical nonenhancement peripherally involving the upper and interpolar area primarily. Left renal vein appears patent. Left renal artery also appears patent. The bladder is grossly normal. There is a large mass in the left posterior pelvis measuring 5.3 x 5 cm on axial image #65. This contains fat, soft tissue attenuation and calcification consistent with a teratoma. The calcifications appear somewhat toothlike measuring up to 1.8 x 0.8 cm in size. No evidence of a bowel obstruction. The appendix is normal. Small amount of free pelvic fluid. Bone windows show no acute findings. Impression: 1. Significantly abnormal appearance of the left kidney with cortical hypoenhancement in multiple locations and perirenal inflammatory changes. Findings could represent acute pyelonephritis or an acute renal infarct. Recommend clinical and laboratory correlation. 2. 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 Findings were discussed with the ordering physician at 1600 on April 28, 2017. . <Kaylah Jain - 04/28/17 17:20> Assessment and Plan - Assessment and Plan (1) NSTEMI (non-ST elevated myocardial infarction) Status: Acute (2) Persistent atrial fibrillation Status: Chronic <Akin Umanzor - 05/03/17 13:58> (1) NSTEMI (non-ST elevated myocardial infarction) Status: Acute (2) Persistent atrial fibrillation Status: Acute Converted to SR. Start Amiodarone 400mg po BID for 7 days then 200mg daily. EKG in AM. Continue Xarelto for anticoagulation. <Kaylah Jain - 04/29/17 12:41> - Attestation Attestation Narrative: 05/03/17 13:58 Recommendation After examining the patient I agree with the above assessment. I am involved in the formulation of the patient's plan of care. <Akin Umanzor - 05/03/17 13:58> Hospital Course Summary Disclaimer: The visit summary below is not to be considered part of the above Progress Note. <Akin Umanzor - 05/03/17 13:58> The visit summary below is not to be considered part of the above Progress Note. <Kaylah Jain - 04/28/17 17:20> Hospital Course: 04/27/17 NSTEMI: due to emboli due to patient's history of persistent atrial fibrillation without anticoagulation and minimal CAD. Stent placed in distal LAD. Will keep on dual antiplatelet therapy with Aspirin and Plavix for 1 year. Continue BB prescribed for rate control with addition of ACEI, and Atorvastatin. AFib: Start Xarelto 20mg daily for stroke prevention. Continue BB for rate control. Discuss cardioversion after 30 days anticoagulation or referral for ablation. 09/28/17 17:20 Converted to SR. Start Amiodarone 400mg po BID for 7 days then 200mg daily. EKG in AM. Continue Xarelto for anticoagulation. <Kaylah Jain - 04/28/17 17:20>
[2017-04-28] MEDS ORDERED: RIVAROXABAN 20 MG TABLET PO SCH (18:11)
[2017-04-28] MEDS: LISINOPRIL 2.5 MG TABLET PO SCH (18:26)
[2017-04-28] MEDS ORDERED: AMIODARONE 200 MG TABLET PO SCH (21:00)
[2017-04-28] MEDS: ATORVASTATIN 20 MG TABLET PO SCH (21:31)
[2017-04-29] MEDS: NS 1,000 ML IV SCH (04:10)
[2017-04-29 07:52] VITALS: RESP 16
[2017-04-29] MEDS: ASPIRIN *EC* 81 MG TABLET PO SCH (08:45)
[2017-04-29] MEDS: LISINOPRIL 2.5 MG TABLET PO SCH (08:45)
[2017-04-29] MEDS: CLOPIDOGREL 75 MG TABLET PO SCH (08:45)
[2017-04-29 11:05] VITALS: BP 98/67; PULSE 85; TEMP 97.9; O2SAT 98
--- NOTE | 2017-04-29 12:43 | Discharge Summary ---
<Kaylah Jain - Last Filed: 04/29/17 13:15> Discharge Information Date of admission: 04/28/17 15:31 Anticipated date of discharge: 04/29/17 Attending Physician: Akin Umanzor MD Primary care physician: Geo Arias MD Consults: Lauren Montemayor MD - Discharge Diagnosis (1) NSTEMI (non-ST elevated myocardial infarction) Status: Acute (2) Persistent atrial fibrillation Status: Chronic - Procedures Procedures: Date of Exam: 04/27/17 Type of Exam(s): CA heart cath LT DATE OF PROCEDURE April 27, 2017 The patient is a 66-year-old lady who presented to emergency room with non-ST- elevation myocardial infarction and was referred for further evaluation by cardiac catheterization and possible intervention. Informed consent was obtained after explaining the procedure and the potential risks to the patient who agreed to proceed with the procedure. PROCEDURE 1. Left heart catheterization. 2. Coronary angiography. 3. Left ventriculography. 4. Primary stent of LAD using a 2.25 x 12 drug-eluting Resolute [place] stent. TECHNIQUE She was prepped and draped in the usual sterile techniques. Conscious sedation was performed using Versed and fentanyl. 1% lidocaine was used for local anesthesia. Using modified Seldinger technique, arterial access was obtained into the right radial artery with placement of a 6-[place] arterial sheath. 3000 units of heparin, 300 mcg of nitroglycerin, and 2.5 mg of verapamil were given through the arterial sheath. The patient received additional 2000 units of heparin IV prior to intervention. She also received 600 mg of oral Plavix. LEFT VENTRICULOGRAPHY Left ventriculography in single-plane [place] shallow projection showed normal LV systolic function with ejection fraction of 65% with no mitral regurgitation or gradient across the aortic valve. LVEDP was about 6. CORONARY ANGIOGRAPHY Left main was free of significant lesions. Left anterior descending artery was a medium caliber vessel which was tortuous and at the junction of the mid and distal third of the vessel there was an area of thrombus which appeared to be the culprit lesion. Left circumflex artery had minor irregularities with no significant lesions. Right coronary artery was dominant with no significant lesions. After reviewing the images we decided to proceed with intervention on LAD. Our sheath was exchanged for a 6-Namibian [email or web address] left guide. A Runthrough wire was used to cross the lesion into distal LAD. A 2.25 x 12 drug-eluting Resolute [place] stent was delivered to the lesion site where it was deployed by inflating the balloon to 14 atmospheres. Next, angiogram showed excellent results with no residual stenosis. The patient tolerated the procedure well with no complications. IMPRESSION 1. Coronary artery disease as described above. 2. Normal LV systolic function with ejection fraction of 65%. 3. Successful primary stent of LAD using a 2.25 x 12 drug-eluting Resolute [place] stent. PLAN Will keep her on dual antiplatelet therapy at least for one year and continue risk modification. I believe this event was an embolic event resulting from her chronic atrial fibrillation. Will start her on anticoagulation as well to hopefully prevent further embolic events in future. - Laboratory Labs: 04/29/17 03:45 04/29/17 03:45 Laboratory Results - last 72 hr 04/27/17 04/27/17 04/27/17 06:32 06:32 06:32 WBC 11.2 H RBC 4.63 Hgb 14.1 Hct 42.0 MCV 90.7 MCH 30.5 MCHC 33.6 RDW Std Deviation 38.8 Plt Count 219 MPV 10.5 Immature Gran % (Auto) 0.4 Neut % (Auto) 84.9 H Lymph % (Auto) 8.3 L [place] % (Auto) 6.2 Eos % (Auto) 0.1 Baso % (Auto) 0.1 Neut # (Auto) 9.5 H Lymph # (Auto) 0.9 L [place] # (Auto) 0.7 Eos # (Auto) 0.0 Baso # (Auto) 0.0 Abs Immat Gran (auto) 0.05 H Neutrophils % (Manual) Band Neutrophils % Lymphocytes % (Manual) Monocytes % (Manual) Neutrophils # (Manual) Band Neutrophils # Lymphocytes # (Manual) Monocytes # (Manual) RBC Morph Comment Turbidity < 20 Sodium 135 Potassium 4.1 Chloride 100 Carbon Dioxide 25 Anion Gap 10 BUN 17.0 Creatinine 1.0 GFR Calculation 56 BUN/Creatinine Ratio 17 Glucose 122 H Calculated Osmolality 263 Calcium 9.8 Total Bilirubin 0.90 Conjugated Bilirubin Unconjugated Bilirubin Icterus Index < 2 AST 175 H ALT 131 H Alkaline Phosphatase 84 Lactate Dehydrogenase Troponin I 3.270 H Total Protein 8.3 H Albumin 4.4 Globulin 3.9 H Albumin/Globulin Ratio 1.1 Triglycerides Cholesterol LDL Cholesterol, Calc VLDL Cholesterol HDL Cholesterol Cholesterol/HDL Ratio Lipase 62 Specimen Hemolysis 32 H 31 H Ur Collection Type Urine Color Urine Clarity Urine pH Ur Specific [place] Urine Protein Urine Glucose (UA) Urine Ketones Urine Occult Blood Urine Nitrate Urine Bilirubin Urine Urobilinogen Ur Leukocyte Esterase Urine RBC Urine WBC Ur Squamous Epith Cells Urine Bacteria Ur Culture Indicated? Hepatitis C Antibody 04/27/17 04/27/17 04/27/17 06:37 07:32 14:51 WBC RBC Hgb Hct MCV MCH MCHC RDW Std Deviation Plt Count MPV Immature Gran % (Auto) Neut % (Auto) Lymph % (Auto) [place] % (Auto) Eos % (Auto) Baso % (Auto) Neut # (Auto) Lymph # (Auto) [place] # (Auto) Eos # (Auto) Baso # (Auto) Abs Immat Gran (auto) Neutrophils % (Manual) Band Neutrophils % Lymphocytes % (Manual) Monocytes % (Manual) Neutrophils # (Manual) Band Neutrophils # Lymphocytes # (Manual) Monocytes # (Manual) RBC Morph Comment Turbidity Sodium Potassium Chloride Carbon Dioxide Anion Gap BUN Creatinine GFR Calculation BUN/Creatinine Ratio Glucose Calculated Osmolality Calcium Total Bilirubin Conjugated Bilirubin Unconjugated Bilirubin Icterus Index AST ALT Alkaline Phosphatase Lactate Dehydrogenase Troponin I 3.380 H 4.050 H Total Protein Albumin Globulin Albumin/Globulin Ratio Triglycerides Cholesterol LDL Cholesterol, Calc VLDL Cholesterol HDL Cholesterol Cholesterol/HDL Ratio Lipase Specimen Hemolysis < 15 < 15 Ur Collection Type Urine, clean catch Urine Color Yellow Urine Clarity Clear Urine pH 7.0 Ur Specific [place] 1.010 L Urine Protein Trace A Urine Glucose (UA) Negative Urine Ketones 1+ A Urine Occult Blood 1+ A Urine Nitrate Negative Urine Bilirubin Negative Urine Urobilinogen 0.2 Ur Leukocyte Esterase Negative Urine RBC 0-1 Urine WBC None seen Ur Squamous Epith Cells None seen Urine Bacteria None seen Ur Culture Indicated? Cult not indicated Hepatitis C Antibody 04/27/17 04/28/17 04/28/17 20:49 04:33 04:33 WBC 15.4 H RBC 4.21 Hgb 12.8 Hct 38.6 MCV 91.7 MCH 30.4 MCHC 33.2 RDW Std Deviation 40.3 Plt Count 179 MPV 11.1 Immature Gran % (Auto) Not performed Neut % (Auto) Not performed Lymph % (Auto) Not performed [place] % (Auto) Not performed Eos % (Auto) Not performed Baso % (Auto) Not performed Neut # (Auto) Not performed Lymph # (Auto) Not performed [place] # (Auto) Not performed Eos # (Auto) Not performed Baso # (Auto) Not performed Abs Immat Gran (auto) Not performed Neutrophils % (Manual) 86.0 H Band Neutrophils % 2.0 Lymphocytes % (Manual) 6.0 L Monocytes % (Manual) 6.0 Neutrophils # (Manual) 13.2 H Band Neutrophils # 0.3 Lymphocytes # (Manual) 0.9 L Monocytes # (Manual) 0.9 H RBC Morph Comment Normal Turbidity < 20 Sodium 136 Potassium 3.8 Chloride 103 Carbon Dioxide 26 Anion Gap 7 BUN 12.0 Creatinine 1.0 GFR Calculation 56 BUN/Creatinine Ratio 12 Glucose 121 H Calculated Osmolality 263 Calcium 9.0 D Total Bilirubin Conjugated Bilirubin Unconjugated Bilirubin Icterus Index < 2 AST ALT Alkaline Phosphatase Lactate Dehydrogenase Troponin I 3.170 H Total Protein Albumin Globulin Albumin/Globulin Ratio Triglycerides Cholesterol LDL Cholesterol, Calc VLDL Cholesterol HDL Cholesterol Cholesterol/HDL Ratio Lipase Specimen Hemolysis < 15 < 15 Ur Collection Type Urine Color Urine Clarity Urine pH Ur Specific [place] Urine Protein Urine Glucose (UA) Urine Ketones Urine Occult Blood Urine Nitrate Urine Bilirubin Urine Urobilinogen Ur Leukocyte Esterase Urine RBC Urine WBC Ur Squamous Epith Cells Urine Bacteria Ur Culture Indicated? Hepatitis C Antibody 04/28/17 04/29/17 04/29/17 04:33 03:45 03:45 WBC 16.0 H RBC 4.30 Hgb 13.2 Hct 39.6 MCV 92.1 MCH 30.7 MCHC 33.3 RDW Std Deviation 40.5 Plt Count 190 MPV 10.7 Immature Gran % (Auto) Not performed Neut % (Auto) Not performed Lymph % (Auto) Not performed [place] % (Auto) Not performed Eos % (Auto) Not performed Baso % (Auto) Not performed Neut # (Auto) Not performed Lymph # (Auto) Not performed [place] # (Auto) Not performed Eos # (Auto) Not performed Baso # (Auto) Not performed Abs Immat Gran (auto) Not performed Neutrophils % (Manual) 80.0 H Band Neutrophils % 2.0 Lymphocytes % (Manual) 7.0 L Monocytes % (Manual) 11.0 H Neutrophils # (Manual) 12.8 H Band Neutrophils # 0.3 Lymphocytes # (Manual) 1.1 Monocytes # (Manual) 1.8 H RBC Morph Comment Normal Turbidity Sodium Potassium Chloride Carbon Dioxide Anion Gap BUN Creatinine GFR Calculation BUN/Creatinine Ratio Glucose Calculated Osmolality Calcium Total Bilirubin Conjugated Bilirubin Unconjugated Bilirubin Icterus Index AST ALT Alkaline Phosphatase Lactate Dehydrogenase Troponin I Total Protein Albumin Globulin Albumin/Globulin Ratio Triglycerides 54 Cholesterol 148 LDL Cholesterol, Calc 86.2 VLDL Cholesterol 10.8 HDL Cholesterol 51 Cholesterol/HDL Ratio 2.9 Lipase Specimen Hemolysis Ur Collection Type Urine Color Urine Clarity Urine pH Ur Specific [place] Urine Protein Urine Glucose (UA) Urine Ketones Urine Occult Blood Urine Nitrate Urine Bilirubin Urine Urobilinogen Ur Leukocyte Esterase Urine RBC Urine WBC Ur Squamous Epith Cells Urine Bacteria Ur Culture Indicated? Hepatitis C Antibody Negative 04/29/17 04/29/17 03:45 08:53 WBC RBC Hgb Hct MCV MCH MCHC RDW Std Deviation Plt Count MPV Immature Gran % (Auto) Neut % (Auto) Lymph % (Auto) [place] % (Auto) Eos % (Auto) Baso % (Auto) Neut # (Auto) Lymph # (Auto) [place] # (Auto) Eos # (Auto) Baso # (Auto) Abs Immat Gran (auto) Neutrophils % (Manual) Band Neutrophils % Lymphocytes % (Manual) Monocytes % (Manual) Neutrophils # (Manual) Band Neutrophils # Lymphocytes # (Manual) Monocytes # (Manual) RBC Morph Comment Turbidity < 20 Sodium 137 Potassium 4.0 Chloride 105 Carbon Dioxide 27 Anion Gap 5 BUN 12.0 Creatinine 1.1 GFR Calculation 50 BUN/Creatinine Ratio 11 Glucose 102 Calculated Osmolality 264 Calcium 8.9 Total Bilirubin 0.90 Conjugated Bilirubin 0.00 Unconjugated Bilirubin 0.50 Icterus Index < 2 AST 81 H D ALT 132 H Alkaline Phosphatase 70 Lactate Dehydrogenase 2933 H Troponin I Total Protein 6.7 Albumin 3.2 L Globulin 3.5 Albumin/Globulin Ratio 0.9 L Triglycerides Cholesterol LDL Cholesterol, Calc VLDL Cholesterol HDL Cholesterol Cholesterol/HDL Ratio Lipase Specimen Hemolysis < 15 Ur Collection Type Urine, clean catch Urine Color Yellow Urine Clarity Clear Urine pH 5.5 Ur Specific [place] <=1.005 L Urine Protein Negative Urine Glucose (UA) Negative Urine Ketones 1+ A Urine Occult Blood 3+ A Urine Nitrate Negative Urine Bilirubin Negative Urine Urobilinogen 0.2 Ur Leukocyte Esterase Negative Urine RBC 0-1 Urine WBC 0-1 Ur Squamous Epith Cells None seen Urine Bacteria Trace H Ur Culture Indicated? Cult not indicated Hepatitis C Antibody - Radiology Radiology: Date of Exam: 04/27/17 Ordering Provider: Gagan López DO Type of Exam(s): XR chest 1V Reason for Exam(s): pain Indication: Left-sided flank pain, shortness of air PROCEDURE: XR chest 1V: Encounter: Initial Comparison: None FINDINGS: The lungs are clear. There is no abnormal airspace opacity, pleural effusion or pneumothorax identified. The heart size, pulmonary vasculature and mediastinum are within normal limits. No significant skeletal abnormality is seen. IMPRESSION: No acute cardiopulmonary abnormality. Date of Exam: 04/28/17 Ordering Provider: Lauren Montemayor MD Type of Exam(s): CT abdomen pelvis w con Reason for Exam(s): abn LFTs, LLQ pain Indication: abn LFTs, LLQ pain PROCEDURE: CT abdomen pelvis w con: Encounter: Initial Comparison: None Technique: Axial CT images were performed through the abdomen and pelvis after the administration of intravenous contrast. Coronal and sagittal two-dimensional reformats. Automated Exposure Control and Iterative Reconstruction dose reducing techniques were utilized. Contrast: Omnipaque 300 89 mL Findings: Atelectasis in both lower lobes. Tiny low-attenuation foci scattered throughout the liver, too small to definitively characterize. No enhancing liver mass or bile duct dilatation. Some vicarious excretion of contrast material by the gallbladder. The spleen, pancreas and adrenal glands are within normal limits. The right kidney shows areas of upper and lower pole scarring without enhancing mass or hydronephrosis. The left kidney is diffusely abnormal with perinephric inflammation and areas of cortical nonenhancement peripherally involving the upper and interpolar area primarily. Left renal vein appears patent. Left renal artery also appears patent. The bladder is grossly normal. There is a large mass in the left posterior pelvis measuring 5.3 x 5 cm on axial image #65. This contains fat, soft tissue attenuation and calcification consistent with a teratoma. The calcifications appear somewhat toothlike measuring up to 1.8 x 0.8 cm in size. No evidence of a bowel obstruction. The appendix is normal. Small amount of free pelvic fluid. Bone windows show no acute findings. Impression: 1. Significantly abnormal appearance of the left kidney with cortical hypoenhancement in multiple locations and perirenal inflammatory changes. Findings could represent acute pyelonephritis or an acute renal infarct. Recommend clinical and laboratory correlation. 2. 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 Findings were discussed with the ordering physician at 1600 on April 28, 2017. History of Present Illness HPI: Lolita is a 66 year old female who is known to with a history of persistent atrial fibrillation. She was last seen in our office on 02/24/17 at which time she refused anticoagulation therapy to prevent stroke. She saw Dr. Arias on 03/01/17 and according to his documentation he had a long discussion with her regarding atrial fibrillation pathophysiology, rhythm control versus rate control/anticoagulation, at the end of which she decided to think about it further and would let him know if she decided to proceed. Today she presented to the ED with nausea and left sided abdominal discomfort. She reported onset of symptoms on Tuesday, and has been persistent intermittently in nature since onset. She denies any chest pain or shortness of breath. She does also note belching with nausea. She describes the pain as dull, and mild, with no radiation. She denies any trauma, travel, poorly prepared food or recent antibiotic use. She has no other complaints or associated symptoms. In the ED she was found to have a Troponin elevated to 3.270 with repeat of 3.380. EKG showed Atrial fibrillation with T wave abnormality indicating anterior, inferior ischemia. She was taken directly to the greenhouse laborer for a left heart catheterization with possible percutaneous intervention. Hospital Course This is a general summary of the patient's hospital course. For more details refer to the complete medical record. Hospital course: 04/27/17 NSTEMI: due to emboli due to patient's history of persistent atrial fibrillation without anticoagulation and minimal CAD. Stent placed in distal LAD. Will keep on dual antiplatelet therapy with Aspirin and Plavix for 1 year. Continue BB prescribed for rate control with addition of ACEI, and Atorvastatin. AFib: Start Xarelto 20mg daily for stroke prevention. Continue BB for rate control. Discuss cardioversion after 30 days anticoagulation or referral for ablation. 04/28/17 17:20 Converted to SR. Start Amiodarone 400mg po BID for 7 days then 200mg daily. EKG in AM. Continue Xarelto for anticoagulation. 04/29/17 Returned to chronic atrial fibrillation before receiving Amiodarone. Amiodarone was stopped and Metoprolol increased for rate control and due to occasional PVCs on telemetry. Lolita was given samples of Xarelto and discount card, as well as follow up appointment with Dr. Umanzor. She was instruxted to follow up with PCP Dr. Geo Arias. Time spent with patient: 25 - 35 minutes DVT Prophylaxis: Xarelto Exam Vital signs: Temperature 97.9 F 04/29/17 11:03 Pulse Rate 85 04/29/17 11:03 Respiratory Rate 16 04/29/17 11:03 Blood Pressure 98/67 04/29/17 11:03 Pulse Oximetry 98 04/29/17 11:03 - Constitutional no acute distress, well nourished, cooperative - Routine HEENT Exam Head: Present: normocephalic ENT: Present: mucous membranes moist - Routine Neck Exam Absent: JVD, carotid bruit - Routine Chest/Breast/Axilla Exam Chest wall: Absent: tenderness - Routine Respiratory Exam Present: CTA bilaterally. Absent: rales, wheezes - Routine Cardiovascular Exam Present: no murmur, irregular rhythm. Absent: JVD - Routine Abdominal Exam Present: soft, normoactive bowel sounds - Routine Extremities Exam Present: no edema - Routine Skin Exam Present: intact, dry, warm - Routine Neurological Exam Present: alert, oriented X3 - Routine Psychiatric Exam Present: normal affect, normal thought process Results 04/29/17 03:45 04/29/17 03:45 Cardiac Enzymes 04/29/17 Range/Units 03:45 AST 81 H D (14-36) U/L Lactate Dehydrogenase 2933 H (313-618) U/L CBC 04/29/17 Range/Units 03:45 WBC 16.0 H (4.5-11.0) T/MM3 RBC 4.30 (4.00-5.20) M/MM3 Hgb 13.2 (12-16) GM/DL Hct 39.6 (36-46) % Plt Count 190 (130-400) T/MM3 Neut # (Auto) Not performed Lymph # (Auto) Not performed [place] # (Auto) Not performed Eos # (Auto) Not performed Baso # (Auto) Not performed Comprehensive Metabolic Panel 04/29/17 Range/Units 03:45 Sodium 137 (134-144) MEQ/L Potassium 4.0 (3.6-5) MEQ/L Chloride 105 (98-107) MEQ/L Carbon Dioxide 27 (22-30) MEQ/L BUN 12.0 (7-17) MG/DL Creatinine 1.1 (0.7-1.2) MG/DL Glucose 102 (65-110) MG/DL Calcium 8.9 (8.4-10.2) MG/DL Unconjugated Bilirubin 0.50 (0.00-1.1) MG/DL AST 81 H D (14-36) U/L ALT 132 H (9-52) U/L Alkaline Phosphatase 70 (38-126) U/L Total Protein 6.7 (6.3-8.2) G/DL Albumin 3.2 L (3.5-5.0) G/DL Intake and Output 04/28/17 04/29/17 04/29/17 22:59 06:59 14:59 Intake Total 400 / 400 1351.25 / 1351.25 360 / 360 Output Total 500 / 500 Balance 400 / 400 1351.25 / 1351.25 -140 / -140 Intake: IV 951.25 / 951.25 Normal Saline 1,000 ml @ 951.25 / 951.25 75 mls/hr IV .[id number] [facility] Rx#:[id number] Oral 400 / 400 400 / 400 360 / 360 Output: Urine 500 / 500 Other: Weight 133 lb 6.075 oz Patient Weight 04/30/17 06:59 Weight 133 lb 6.075 oz - Imaging and Cardiology Cardiac cath: report reviewed EKG results: image reviewed - EKG Interpretation EKG shows: atrial fibrillation Discharge Plan - Med Rec/Dispo Referrals/Follow Up: Akin Umanzor MD [Physician] - 05/18/17 8:50 am [place] Instructions: [facility] [place] Heart Cath Prescriptions: New Atorvastatin [Lipitor] 20 mg PO HS #30 tab Lisinopril [Prinivil] 2.5 mg PO DAILY #30 tab Metoprolol Tartrate [Lopressor] 50 mg PO BIDWM #60 tab Rivaroxaban [Xarelto] 20 mg PO WS #30 tab Aspirin *EC* [Ecotrin] 81 mg PO DAILY #30 tab Clopidogrel [Plavix] 75 mg PO DAILY #30 tab Discontinued Aspirin [Aspirin EC] 81 mg PO DAILY Metoprolol Tartrate [Lopressor] 25 mg PO BIDWM - Disposition 01 Discharged Home, Self-Care <Akin Umanzor - Last Filed: 05/04/17 13:28> Discharge Information Date of admission: 04/28/17 15:31 Attending Physician: Akin Umanzor MD Primary care physician: Geo Arias MD - Discharge Diagnosis (1) NSTEMI (non-ST elevated myocardial infarction) Status: Acute (2) Persistent atrial fibrillation Status: Chronic - Laboratory Labs: 04/29/17 03:45 04/29/17 03:45 Hospital Course This is a general summary of the patient's hospital course. For more details refer to the complete medical record. Exam Vital signs: Temperature 97.9 F 04/29/17 11:03 Pulse Rate 85 04/29/17 11:03 Respiratory Rate 16 04/29/17 11:03 Blood Pressure 98/67 04/29/17 11:03 Pulse Oximetry 98 04/29/17 11:03 Results 04/29/17 03:45 04/29/17 03:45 Discharge Plan - Med Rec/Dispo - Attestation Attestation Narrative: 05/04/17 13:28 Recommendation After examining the patient I agree with the above assessment. I am involved in the formulation of the patient's plan of care.
--- NOTE | 2017-04-29 13:14 | Work/School Release ---
<Kaylah Jain - Last Filed: 04/29/17 13:11> Work/School Release - Date Date: 04/29/17 - Work Release Excused for:: Recent illness 04/27/17-04/29/17 May return to work on:: 04/30/17 Restrictions:: Limit activity for 2 days. No lifting more than 10 pounds, no pushing or pulling for [address], operate machinery or drink alcohol for 2 days. May resume normal activity on:: 04/04/17 <Akin Umanzor - Last Filed: 05/03/17 13:59> Work/School Release - Date Date: 05/03/17
--- NOTE | 2017-04-29 13:35 | Progress Note ---
Subjective: Mrs. Gomes reports no problems overnight and no recurrent left lower quadrant pain. She denied dyspnea, palpitations, nausea, or lightheadedness. Her appetite is good. Objective Vital signs: Temperature 97.9 F 04/29/17 11:03 Pulse Rate 85 04/29/17 11:03 Respiratory Rate 16 04/29/17 11:03 Blood Pressure 98/67 04/29/17 11:03 Pulse Oximetry 98 04/29/17 11:03 Patient is alert, NAD, fluent speech Respirations nonlabored, good airflow, breath sounds clear Irregular rhythm, S1-S2; atrial flutter on telemetry by my review Abdomen is soft, nontender, bowel sounds present; no tenderness right upper quadrant or left lower quadrant Without edema, MAEW Rhythm: Atrial Fibrillation with Normal Ventricular Rate Height/Weight/BMI: Weight 60.5 kg Results - Labs CBC & Chem 7: 04/29/17 03:45 04/29/17 03:45 Labs: S80, B2, L7, M11 AST 81, ALT 132, LDH 2933 UA +3 occult blood, 0-1 WBC - Imaging and Cardiology CT scan - abdomen Status: image reviewed by me (CT of the abdomen reviewed by myself and discussed with Dr. Teresa late yesterday-liver is entirely normal, there is a infarct in the left kidney and a 5.3 cm left ovarian teratoma/dermoid.) Assessment and Plan (1) Persistent atrial fibrillation Current visit: Yes Status: Chronic (2) Leukocytosis Current visit: Yes Status: Acute (3) Pain, abdominal, LLQ Current visit: Yes Status: Acute Assessment and Plan: Impression: Left renal infarction Left ovarian teratoma Left sided abdominal pain-resolved Transaminitis Nausea-resolved Leukocytosis Status post heart catheterization with removal of thrombus from LAD and stent placement NSTEMI Plan: Left lower quadrant pain has resolved, pain consistent with renal infarction which was almost certainly due to an embolic event occurring in conjunction with emboli causing LAD thrombus. Renal function is stable, no intervention needed although long-term anticoagulation recommended. Hepatitis C antibody is negative. Transaminases remain mildly elevated, discussed with Dr. Arias for follow-up purposes. Dr. Arias and patient also aware of teratoma and HAND PLEATER referral anticipated. Medically stable for discharge. Hospital Course Summary Disclaimer: The visit summary below is not to be considered part of the above Progress Note. Hospital Course: 9/27/17 NSTEMI: due to emboli due to patient's history of persistent atrial fibrillation without anticoagulation and minimal CAD. Stent placed in distal LAD. Will keep on dual antiplatelet therapy with Aspirin and Plavix for 1 year. Continue BB prescribed for rate control with addition of ACEI, and Atorvastatin. AFib: Start Xarelto 20mg daily for stroke prevention. Continue BB for rate control. Discuss cardioversion after 30 days anticoagulation or referral for ablation. 04/28/17 17:20 Converted to SR. Start Amiodarone 400mg po BID for 7 days then 200mg daily. EKG in AM. Continue Xarelto for anticoagulation. 04/29/17 Returned to chronic atrial fibrillation before receiving Amiodarone. Amiodarone was stopped and Metoprolol increased for rate control and due to occasional PVCs on telemetry. Lolita was given samples of Xarelto and discount card, as well as follow up appointment with Dr. Umanzor. She was instruxted to follow up with PCP Dr. Geo Arias.
[2017-05-05] MEDS ORDERED: AMIODARONE 200 MG TABLET PO SCH (09:00)
== END 2017-04-29 14:35 | disposition home or self-care (01) | DRG 247 ==
LOC: CCU 05:35 → ED 05:35 → CCU 08:20 → MED 04-28 17:00
PROVIDERS: ADMIT Internal Medicine Cardiovascular Disease; ATTEND Internal Medicine Cardiovascular Disease